=== PATIENT | male | born 1970 | race African-American/Black ===

== ENCOUNTER 2016-06-17 21:07 | Emergency (ER) | payer SELFPAY ==
[~2016-06-17] VITALS: Ht 180.3 cm; Wt 164.9 kg
[~2016-06-17 21:07] MED LIST: ACET325S8 PO; HTN; OSEL75 PO
[2016-06-17 21:18] VITALS: BP 162/100; PULSE 64; RESP 14; TEMP 98.8; O2SAT 100
--- NOTE | 2016-06-17 21:48 | PD ---
HPI Chief Complaint: Pain: Acute or Chronic Time Seen by Provider: 21:48 Travel History International Travel<30 days: No Contact w/Intl Traveler<30days: No Traveled to known affect area: No History of Present Illness HPI 46-year-old Afro-[place]ub[place] male presents to the emergency Department with sudden onset left lower lumbar pain with radiation down the left buttock to the knee. Patient states no previous history of sciatica in the past. Patient states it started while getting up out of his car earlier this morning. Patient denies fever, chills, or other symptoms. He denies weakness in the left lower extremity. He denies numbness. Pain is gotten progressively worse through the day. He denies urine or bowel issue. Patient is markedly overweight and has bilateral pedal edema which is chronic. Patient denies calf tenderness or foot tenderness. No signs of infection are noted. Patient has no local PCP. He has no known drug allergies. PFSH Past Medical History Cardiovascular Problems: Yes (htn) Diminished Hearing: No Hypertension: Yes Immunizations Current: Yes Sleep Apnea: Yes Tetanus Vaccination: < 5 Years Influenza Vaccination: Yes Past Surgical History Surgical History: No Previous Surgery Social History Alcohol Use: No Tobacco Use: No Substance Use: No Allergies-Medications (Allergen,Severity, Reaction): Coded Allergies: No Known Allergies (Verified , 06/17/16) Reported Meds & Prescriptions Reported Meds & Active Scripts Active Tramadol (Tramadol HCl) 50 Mg Tab 50 Mg PO Q6H PRN Prednisone 20 Mg Tab 20 Mg PO BID Orphenadrine CR (Orphenadrine Citrate) 100 Mg Tab 100 Mg PO Q12HR Review of Systems Except as stated in HPI: all other systems reviewed are Neg General / Constitutional: No: Fever Eyes: No: Visual changes HENT: No: Headaches Cardiovascular: No: Chest Pain or Discomfort Respiratory: No: Shortness of Breath Gastrointestinal: No: Abdominal Pain Genitourinary: No: Dysuria Musculoskeletal: Positive: Limited ROM, Edema (chronic. See history present illness.), Pain (see history present illness.) Skin: No Rash Neurologic: No: Weakness Psychiatric: No: Depression Endocrine: No: Polydipsia Hematologic/Lymphatic: No: Easy Bruising Physical Exam Narrative GENERAL: Patient appears in mild distress. SKIN: Warm and dry. Normal color. Normal turgor. No signs of cellulitis or lower extremities. HEAD: Atraumatic. Normocephalic. EYES: Pupils equal and round. No scleral icterus. No injection or drainage. ENT: No nasal bleeding or discharge. Mucous membranes pink and moist. Pharynx is clear. Airway is patent. NECK: Trachea midline. Neck is supple nontender. CARDIOVASCULAR: Regular rate and rhythm. RESPIRATORY: No accessory muscle use. Clear to auscultation. Breath sounds equal bilaterally. GASTROINTESTINAL: Abdomen soft, non-tender, nondistended. Hepatic and splenic margins not palpable. No pulsatile mass or bruits appreciated. MUSCULOSKELETAL: Extremities without clubbing, cyanosis, or edema. No obvious deformities. Patient has positive straight leg raise pain on the left at 40. He does not have contralateral straight leg raise pain on the right. Patient has normal strength in the lower extremities, and deep tendon reflexes are 2+ and equal in both patellar and Achilles tendons. Patient does have pain with palpation along the left lower lumbar spine extending into the sciatic notch. NEUROLOGICAL: Awake and alert. No obvious cranial nerve deficits. Motor grossly within normal limits. Five out of 5 muscle strength in the arms and legs. Normal speech. PSYCHIATRIC: Appropriate mood and affect; insight and judgment normal. Data Data Last Documented VS Vital Signs Date Time Temp Pulse Resp B/P Pulse Ox O2 Delivery O2 Flow Rate FiO2 06/17/16 21:41 06/17/16 21:18 98.8 64 14 100 Orders Prednisone (Deltasone) (06/17/16 22:00) Ketorolac Inj (Toradol Inj) (06/17/16 22:00) [facility] Medical Decision Making Medical Screen Exam Complete: Yes Emergency Medical Condition: Yes Differential Diagnosis Lumbago. Low back pain. Sciatica. Narrative Course Patient is medically stable at time of exam. Radiographic imaging is not felt warranted based on the patient's history and physical. Patient is given Toradol 60 mg IM. Patient is given prednisone 60 mg by mouth. Patient will be continued on prednisone 20 mg twice a day for 5 days. Patient is given Norflex 100 mg twice a day when necessary muscle spasm #10. Patient is given Toradol 50 mg one every 6 hours when necessary pain #20. Patient is encouraged to walk frequently and follow up if symptoms do not improve or worsen. Patient is referred to local primary care for further evaluation and treatment and to become established. Diagnosis Primary Impression: Lumbago with sciatica, left side Referrals: [facility] Patient Instructions: General Instructions, Sciatica (ED) Additional Instructions: Radiographic imaging is not felt warranted based on the patient's history and physical. Patient is given Toradol 60 mg IM. Patient is given prednisone 60 mg by mouth. Patient will be continued on prednisone 20 mg twice a day for 5 days. Patient is given Norflex 100 mg twice a day when necessary muscle spasm #10. Patient is given Toradol 50 mg one every 6 hours when necessary pain #20. Patient is encouraged to walk frequently and follow up if symptoms do not improve or worsen. Patient is referred to local primary care for further evaluation and treatment and to become established. Med/Other Pt SpecificInfo: Prescription(s) given Scripts Tramadol 50 Mg Tab50 Mg PO Q6H PRN (PAIN) #20 TAB Prov:Axel Tripp MD 06/17/16 Prednisone 20 Mg Tab20 Mg PO BID #10 TAB Prov:Axel Tripp MD 06/17/16 Orphenadrine ER 12 HR (Orphenadrine CR)100 Mg [id number] Mg PO Q12HR #10 TAB Prov:Axel Tripp MD 06/17/16 Disposition: 01 DISCHARGE HOME Condition: Stable Garrett Sargent June 17, 2016 21:48
[2016-06-17] MEDS ORDERED: KETOROLAC TROMETHAMINE 60 MG/2 ML (IM) VIAL IM ONE (22:00)
[2016-06-17] MEDS ORDERED: predniSONE 20 MG TAB PO ONE (22:00)
[2016-06-17] MEDS ORDERED: TRAM50TA PO (22:14)
[2016-06-17] MEDS ORDERED: ORPH100T99 PO (22:14)
[2016-06-17] MEDS ORDERED: PRED20 PO (22:14)
== END 2016-06-17 22:28 | disposition home or self-care (01) ==
LOC: PHEFT 21:07
DX: M54.42 Lumbago with sciatica, left side (principal); I10 Essential (primary) hypertension; G47.30 Sleep apnea, unspecified
CPT/HCPCS: 96372; 99283; J1885; J7512